=== PATIENT | female | born 1975 | race Caucasian/White ===

== ENCOUNTER → 2021-05-09 12:38 | Outpatient (CLI) | payer OTHER, SELFPAY ==
[2021-05-09 13:50] LABS: COVID19 -Nasal RAPID Negative (Negative)
== END ==
PROVIDERS: Referring Provider Nurse Practitioner Family; Visit Provider Nurse Practitioner Family
DX: Z20.822 Contact with and (suspected) exposure to COVID-19 (principal); R51.9 Headache, unspecified
CPT/HCPCS: 87635